=== PATIENT | male | born 1955 | race Caucasian/White ===

== ENCOUNTER → 2019-07-03 | Outpatient (CLI) | payer OTHER ==
[~2019-07-03] MED LIST: ACTOS 30 MG TAB30 MG PO; CYMBALTA60 MG PO; GEMFIBROZIL 60600 MG PO; GLYBURID-METFO1 EAC3 PO; IRON325 PO; JANUVIA100 MG PO; KEFLEX500 MG PO; LISINOPRIL-HCT1 EAC1 PO; LOPID600 MG PO; MAGNESIUM OXID400 MG PO; NEURONTIN 300M300 M2 PO; NORCO 5-325 TA1 EACH PO; SIMVASTATIN40 MG PO; ZOFRAN ODT4 MG PO
[2019-07-03 06:45] LABS: POTASSIUM 4.3 mmol/L (3.5-5.1)
== END ==
LOC: M.LAB 01:44
PROVIDERS: Anesthesiology
DX: E87.6 Hypokalemia (principal); E11.9 Type 2 diabetes mellitus without complications

== ENCOUNTER → 2019-08-14 | Outpatient (CLI) | payer OTHER | LOC: M.RAD 14:34 | DX: R76.11 Nonspecific reaction to tuberculin skin test without active tuberculosis (principal) ==